=== PATIENT | female | born 1990 | race Caucasian/White ===

== ENCOUNTER 2020-08-28 00:27 | Emergency (ER) | payer OTHER ==
[~2020-08-28] VITALS: Ht 165.1 cm; Wt 62.0 kg
[2020-08-28 03:32] LABS: *AMPHETAMINES SCREEN URINE NEGATIVE (NEGATIVE); *BARBITURATES SCREEN URINE NEGATIVE (NEGATIVE); *BENZODIAZEPINES SCREEN URINE NEGATIVE (NEGATIVE); *COCAINE SCREEN URINE NEGATIVE (NEGATIVE); CANNABINOID URINE SCREEN NEGATIVE (NEGATIVE); PHENCYCLIDINE URINE SCREEN NEGATIVE (NEGATIVE)
[2020-08-28 03:33] LABS: METHADONE URINE SCREEN NEGATIVE (NEGATIVE); OPIATES URINE SCREEN NEGATIVE (NEGATIVE)
[2020-08-28] MEDS ORDERED: ONDANSETRON HCL 4MG TABLET PO ONE (12:45)
[2020-08-28 12:50] VITALS: BP 114/70
== END 2020-08-28 13:23 | disposition home or self-care (01) ==
LOC: EEVIPCON 00:27 → ER 00:27
DX: Z04.89 Encounter for examination and observation for other specified reasons (principal); T74.51XA Adult forced sexual exploitation, confirmed, initial encounter; Z75.1 Person awaiting admission to adequate facility elsewhere
CPT/HCPCS: 80305; 81025; 93005; 99284; Q0162

== ENCOUNTER 2020-08-28 18:18 | Emergency (ER) | payer OTHER ==
[~2020-08-28] VITALS: Ht 165.1 cm; Wt 56.0 kg
[2020-08-28] MEDS ORDERED: ONDANSETRON HCL 4MG/2ML INJ IV STA (18:50)
[2020-08-28] MEDS ORDERED: SODIUM CHLORIDE 0.9% 1,000 ML IV ONE (19:00)
[2020-08-28 19:06] LABS: BASOPHILS % 0.9 % (0.0-2.0); HEMATOCRIT. 38.1 % (36.0-48.0); HEMOGLOBIN. 12.8 g/dL (12.0-16.0); LYMPHOCYTES % 30.7 % (20.0-50.0); MEAN CORPUSCULAR HEMOGLOBIN 30.9 pg (28.0-32.0); MEAN CORPUSCULAR VOLUME 91.6 fL (81.0-99.0); MEAN PLATELET VOLUME 8.9 fl (7.4-10.4); MONOCYTES % 11.5 % (2.0-8.0); NEUTROPHILS % 54.9 % (40.0-76.0); PLATELET 242 x1000/uL (130-400); RED BLOOD CELL COUNT 4.16 mill/uL (4.2-5.4)
[2020-08-28 19:12] LABS: CHLORIDE 108 mEq/L (98-107)
[2020-08-28 19:17] LABS: ETHANOL BLOOD < 10 mg/dL; HCG SCREEN NEGATIVE
[2020-08-28 19:18] LABS: CLARITY URINE CLEAR (CLEAR); COLOR URINE YELLOW (YELLOW); KETONES URINE NEGATIVE (NEGATIVE); LEUKOCYTE ESTERASE URINE TRACE (NEGATIVE); NITRITE URINE NEGATIVE (NEGATIVE); OCCULT BLOOD URINE 2+ (NEGATIVE); PH URINE 6.5 (4.5-8.0); PROTEIN URINE NEGATIVE (NEGATIVE); SPECIFIC GRAVITY URINE 1.008 (1.005-1.030); UROBILINOGEN URINE 0.2 E.U./dL (0.2-1.0)
[2020-08-28 19:36] LABS: CANNABINOID URINE SCREEN NEGATIVE (NEGATIVE)
[2020-08-28 19:37] LABS: *AMPHETAMINES SCREEN URINE NEGATIVE (NEGATIVE); *BARBITURATES SCREEN URINE NEGATIVE (NEGATIVE); *BENZODIAZEPINES SCREEN URINE NEGATIVE (NEGATIVE); *COCAINE SCREEN URINE NEGATIVE (NEGATIVE); METHADONE URINE SCREEN NEGATIVE (NEGATIVE); OPIATES URINE SCREEN NEGATIVE (NEGATIVE); PHENCYCLIDINE URINE SCREEN NEGATIVE (NEGATIVE)
[2020-08-28] MEDS ORDERED: CEFTRIAXONE 1 G PREMIX 50 ML IV NR (20:00)
[2020-08-28] MEDS ORDERED: ONDANSETRON 4MG ODT PO ONE (20:45)
[2020-08-28] MEDS ORDERED: LEVOFLOXACIN 250MG TABLET PO ONE (20:45)
[2020-08-29 10:25] VITALS: BP 99/50
== END 2020-08-29 10:28 | disposition home or self-care (01) ==
LOC: ER 18:42
DX: N39.0 Urinary tract infection, site not specified (principal); R42 Dizziness and giddiness
CPT/HCPCS: 36415; 71045; 80053; 80305; 80320; 81003; 82962; 83690; 84484; 84703; 85025; 93005; 96360; 99285; J7030; Q0162; J2405; G0480

== ENCOUNTER 2021-09-07 22:06 | Emergency (ER) | payer OTHER ==
[~2021-09-07] VITALS: Ht 165.1 cm; Wt 50.0 kg
[2021-09-07 22:12] VITALS: BP 126/74
[2021-09-08 06:30] LABS: CLARITY URINE CLEAR (CLEAR); COLOR URINE YELLOW (YELLOW); KETONES URINE TRACE (NEGATIVE); LEUKOCYTE ESTERASE URINE TRACE (NEGATIVE); NITRITE URINE NEGATIVE (NEGATIVE); OCCULT BLOOD URINE 1+ (NEGATIVE); PH URINE 5.5 (4.5-8.0); PROTEIN URINE NEGATIVE (NEGATIVE); SPECIFIC GRAVITY URINE 1.007 (1.005-1.030); UROBILINOGEN URINE 0.2 E.U./dL (0.2-1.0)
[2021-09-08 07:02] LABS: *AMPHETAMINES SCREEN URINE NEGATIVE (NEGATIVE); *BARBITURATES SCREEN URINE NEGATIVE (NEGATIVE); *BENZODIAZEPINES SCREEN URINE NEGATIVE (NEGATIVE); *COCAINE SCREEN URINE NEGATIVE (NEGATIVE); METHADONE URINE SCREEN NEGATIVE (NEGATIVE)
[2021-09-08 07:03] LABS: CANNABINOID URINE SCREEN NEGATIVE (NEGATIVE); OPIATES URINE SCREEN NEGATIVE (NEGATIVE); PHENCYCLIDINE URINE SCREEN NEGATIVE (NEGATIVE)
== END 2021-09-08 06:37 | disposition home or self-care (01) ==
LOC: ER 22:06
DX: R42 Dizziness and giddiness (principal); J45.909 Unspecified asthma, uncomplicated; F32.9 Major depressive disorder, single episode, unspecified; I10 Essential (primary) hypertension
CPT/HCPCS: 80305; 81003; 93005; 99284